=== PATIENT | female | born 1985 | race Caucasian/White ===

== ENCOUNTER 2021-10-26 01:09 | Emergency (ER) | payer OTHER ==
[~2021-10-26] VITALS: Ht 167.6 cm; Wt 63.5 kg
--- NOTE | 2021-10-26 01:18 | NUR ---
YONATAN Sandoval FROM STREET FOR ETOH. PT AWAKE AND RESPONSIVE. TOLERATING R/A; RESP EVEN AND NON LABORED. SAFETY MEASURES IN PLACE. 1:1 SITTER AT PT'S BEDSIDE
--- NOTE | 2021-10-26 01:46 | NUR ---
lapd at bed side
--- NOTE | 2021-10-26 02:56 | NUR ---
Patient discharged to home in stable condition. Written and verbal after care instructions given. Patient verbalizes understanding of instruction. PT ambulatory with a steady gait
[2021-10-26 02:57] VITALS: BP 125/83
== END 2021-10-26 03:00 | disposition home or self-care (01) ==
LOC: ER 01:13
DX: F10.129 Alcohol abuse with intoxication, unspecified (principal); Y90.9 Presence of alcohol in blood, level not specified

== ENCOUNTER 2022-07-23 15:01 | Emergency (ER) | payer OTHER ==
[~2022-07-23] VITALS: Ht 167.6 cm; Wt 59.9 kg
--- NOTE | 2022-07-23 16:15 | NUR ---
Patient in ER-13, sleeping but easily aroused. Doesn not want to answer questions, states that she wants to go home and sleep. Changed patient to hospital gown, noticed multiple old surgery scars on abdomen, pelvis, left flank. Scars seem healed with no signs of infection.
--- NOTE | 2022-07-23 16:28 | NUR ---
Urine collected with i/o catheter, sent to lab.
[2022-07-23 16:32] LABS: BASOPHILS % (AUTO) 0.4 % (0.0-2.0); EOSINOPHILS % (AUTO) 1.7 % (0.0-6.0); HEMATOCRIT 39 % (33-45); LYMPHOCYTES # (AUTO) 2.7 K/uL (0.8-4.8); MEAN CORPUSCULAR HGB CONC 33 g/dl (31.0-36.0); MEAN CORPUSCULAR VOLUME 93 fL (82-100); MONOCYTES # (AUTO) 0.6 K/uL (0.1-1.30); MONOCYTES % (AUTO) 8.8 % (2.0-12.0); NEUTROPHILS % (AUTO) 47.1 % (43.0-81.0); PLATELET COUNT (AUTO) 334 K/uL (150-450); RED BLOOD CELL COUNT(AUTO) 4.21 MIL/uL (4.0-5.2); WHITE BLOOD COUNT (AUTO) 6.4 K/uL (4.3-11.0)
[2022-07-23 16:49] LABS: ALANINE AMINOTRANSFERASE 18 U/L (12-78); ALBUMIN 3.4 g/dL (3.4-5.0); ALCOHOL, BLOOD 264 mg/dL (0-0); ALKALINE PHOSPHATASE 269 U/L (46-116); ASPARTATE AMINOTRANSFERASE 16 U/L (15-37); BILIRUBIN,DIRECT 0.1 mg/dL (0.0-0.2); BILIRUBIN,TOTAL 0.2 mg/dL (0.2-1.0); CALCIUM, SERUM 8.4 mg/dL (8.5-10.1); CARBON DIOXIDE 25 mmol/L (21-32); CHLORIDE 107 mmol/L (98-107); CREATININE 0.4 mg/dL (0.6-1.3); GLUCOSE 88 mg/dL (74-106); POTASSIUM 3.3 mmol/L (3.5-5.1); SODIUM SERUM 142 mmol/L (136-145); TOTAL PROTEIN, SERUM 7.1 g/dL (6.4-8.2); UREA NITROGEN, BLOOD 6 mg/dL (7-18)
[2022-07-23 16:50] LABS: BILIRUBIN,URINE NEGATIVE (NEGATIVE); COLOR,URINE YELLOW (YELLOW); LEUKOCYTE ESTERASE ,URINE NEGATIVE (NEGATIVE); NITRITE, URINE NEGATIVE (NEGATIVE); PH,URINE 6.5 (5.0-8.0); PROTEIN,URINE NEGATIVE (NEGATIVE); UGLUCOSE NEGATIVE (NEGATIVE); UROBILINOGEN,URINE 0.2 EU/dL (0.2)
[2022-07-23 16:50] LABS: ACETAMINOPHEN < 10 ug/ml (10-30)
--- NOTE | 2022-07-23 17:00 | NUR ---
COVID swab collected and sent to lab
[2022-07-23] MEDS ORDERED: OLANZAPINE 5 MG TABLET ONE (18:45)
[2022-07-23] MEDS ORDERED: OLANZAPINE ZYDIS 5 MG TAB.RAPDIS PO ONE (19:00)
--- NOTE | 2022-07-23 21:50 | NUR ---
PT'S FATHER CALLED. ACCORDING TO HIM HE IS NOT THE ONE GOING TO EQUINE PHARMACOLOGY TECHNICIAN HER DAUGHTER BECAUSE SHE LIVES WITH HER BOYFRIEND. HE WILL CALL THE BOYFRIEND TO HAVE HER PICKED UP.
--- NOTE | 2022-07-23 23:01 | NUR ---
PT IS MEDICALLY AND PSYCHIATRICALLY CLEARED FOR DISCHARGED. PT IS AMBULATORY ON STEADY GAIT. PT IS BEING PICKED UP BY HER BOYFRIEND. PT IS IN STABLE CONDITION.
[2022-07-23 23:02] VITALS: BP 123/76
== END 2022-07-23 23:03 | disposition home or self-care (01) ==
LOC: ER 15:03
DX: R45.851 Suicidal ideations (principal); F10.129 Alcohol abuse with intoxication, unspecified; Z20.822 Contact with and (suspected) exposure to COVID-19; Y90.8 Blood alcohol level of 240 mg/100 ml or more
CPT/HCPCS: 99285; 85025; 80048; 80076; 84703; 81003; 36415; 87426; 80143; 80320; 80307; C9803; G0480